=== PATIENT | female | born 1980 | race Caucasian/White ===

== ENCOUNTER 2017-09-02 17:31 | Emergency (ER) | payer OTHER ==
[~2017-09-02] VITALS: Ht 165.1 cm; Wt 105.3 kg
[~2017-09-02 17:31] MED LIST: ACETAMINOPHEN-1 EAC1 PO; ANTIVERT25 MG PO; CLARITIN10 MG PO; FLEXERIL PO; HYDROCODONE-AP1 EAC6 PO; IBUPROFEN 800800 M1 PO; IBUPROFEN 800800 MG PO; MUCINEX TA600 MG/TA2 PO; NORCO 5-325 TA1 EACH PO; OSELB75 PO; SERTRALINE HCL50 MG PO; SULFACETAMIDE 115 ML OP; TOBREX5 ML OP; VISTARIL 25 MG25 M1 PO; XANAX 0.5 MG0.5 MG PO
[2017-09-02 18:38] LABS: ABSOLUTE BASOPHILS 0.1 thou/uL (0.0-0.2); ABSOLUTE EOSINOPHILS 0.1 thou/uL (0.0-0.7); ABSOLUTE LYMPHOCYTES 2.2 thou/uL (0.8-5.3); ABSOLUTE MONOCYTES 0.8 thou/uL (0.0-1.2); ABSOLUTE NEUTROPHILS 11.4 thou/uL (1.6-8.1); BASOPHILS 0.9 %; HEMATOCRIT 39.7 % (37.0-47.0); HEMOGLOBIN 13.2 gm/dL (12.0-15.0); LYMPHOCYTES 14.9 %; MCH 29.4 pg (26.0-34.0); MCHC 33.1 g/dL (28.0-37.0); MCV 88.8 fL (80.0-100.0); MONOCYTES 5.5 %; MPV 8.4 fl. (7.2-11.1); NUCLEATED RBCS 0 /100WBC; PLATELET COUNT* 318 thou/uL (150-400); POLYS 77.7 %; RBC 4.47 mil/uL (4.20-5.00); RDW-CV 14.5 % (10.5-14.5); WBC 14.7 thou/uL (4.0-11.0)
[2017-09-02 18:54] LABS: URINE BILIRUBIN NEGATIVE (Negative); URINE BLOOD NEGATIVE (Negative); URINE CLARITY CLEAR; URINE COLOR YELLOW; URINE GLUCOSE-RANDOM NEGATIVE (Negative); URINE KETONES NEGATIVE (Negative); URINE LEUKOCYTES-REFLEX 1+ (Negative); URINE NITRITE-REFLEX NEGATIVE (Negative); URINE PROTEIN NEGATIVE (Negative); URINE UROBILINOGEN 0.2 E.U./dl (0.2-1.0)
[2017-09-02 18:55] LABS: ALBUMIN 3.7 g/dL (3.4-5.0); CALCIUM 8.6 mg/dL (8.5-10.1); CREATININE 0.9 mg/dL (0.6-1.3); POTASSIUM 3.3 mmol/L (3.5-5.1); TOTAL BILIRUBIN 0.8 mg/dL (<0.1-1.0)
[2017-09-02 19:02] LABS: CRYSTALS None Seen /LPF (None Seen); MUCUS 4-6 Moderate strn/LPF (None Seen); SQUAMOUS >10 Many /LPF (0-3)
[2017-09-02 19:03] LABS: CASTS None Seen /LPF (None Seen)
[2017-09-02 19:06] LABS: URINE RBC None Seen /HPF (0-2)
[2017-09-02 19:07] LABS: URINE WBC-REFLEX 0-5 Rare /HPF (0-5)
[2017-09-02] MEDS ORDERED: PROTONIX40 M1 PO (19:17)
[2017-09-02 19:26] VITALS: BP 129/70
--- NOTE | 2017-09-04 13:03 | EKG ---
[place] [address] ELECTROCARDIOGRAM REPORT Name: SHARIF ARMENTA Room: [facility]#: [id number] Admission: 09/02/17 Attend Phys: Discharge: 09/02/17 Date of : 76 Report #: [id number] THIS REPORT FOR: //name// [facility] ED Test Date: 2017-09-02 Test Time: 17:43:17 Pat Name: SHARIF ARMENTA Department: Room: Gender: F Video Journalist: FILIBERTO : 1980 Requested By: Tony Jovel Order Number: [id number] MD: Anam Nichols Measurements Intervals [place] Rate: 78 P: 47 RI: 116 QRS: 12 QRSD: 89 T: 34 QT: 379 QTc: 432 Interpretive Statements Sinus rhythm Borderline short RI interval Anteroseptal infarct, old Compared to ECG 09/07/2014 14:30:47 Sinus tachycardia no longer present Myocardial infarct finding still present Electronically Signed On 09-04-2017 13:03:09 TIRE RECAPPING MACHINE OPERATOR by Anam Nichols [email or web address] <ELECTRONICALLY SIGNED> By: Anam Nichols MD, [facility] 09/04/17 1303 1743 1743 Anam Nichols MD, [facility] /EPI
== END 2017-09-02 19:28 | disposition home or self-care (01) ==
LOC: M.ERS 17:31
PROVIDERS: Physician Assistant
DX: R10.13 Epigastric pain (principal); R11.2 Nausea with vomiting, unspecified; R19.7 Diarrhea, unspecified; F41.9 Anxiety disorder, unspecified; Z88.0 Allergy status to penicillin; Z88.8 Allergy status to other drugs, medicaments and biological substances

== ENCOUNTER 2018-10-17 08:56 | Emergency (ER) | payer OTHER ==
[~2018-10-17] VITALS: Ht 165.1 cm; Wt 99.8 kg
[~2018-10-17 08:56] MED LIST changes: +PROTONIX40 M1 PO
[2018-10-17 09:25] LABS: ABSOLUTE BASOPHILS 0.1 thou/uL (0.0-0.2); ABSOLUTE EOSINOPHILS 0.1 thou/uL (0.0-0.7); ABSOLUTE LYMPHOCYTES 0.8 thou/uL (0.8-5.3); ABSOLUTE NEUTROPHILS 6.2 thou/uL (1.6-8.1); BASOPHILS 0.8 %; EOSINOPHILS 0.8 %; HEMATOCRIT 40.5 % (37.0-47.0); HEMOGLOBIN 13.7 gm/dL (12.0-15.0); LYMPHOCYTES 10.1 %; MCHC 33.7 g/dL (28.0-37.0); MONOCYTES 12.8 %; MPV 8.6 fl. (7.2-11.1); NUCLEATED RBCS 0 /100WBC; PLATELET COUNT* 307 thou/uL (150-400); POLYS 75.5 %; RBC 4.41 mil/uL (4.20-5.00); RDW-CV 13.9 % (10.5-14.5); WBC 8.2 thou/uL (4.0-11.0)
[2018-10-17 09:32] LABS: ANION GAP 8 mmol/L (7-16); BUN 9 mg/dL (7-18); CALCIUM 10.2 mg/dL (8.5-10.1); CHLORIDE 102 mmol/L (98-107); CO2 26 mmol/L (21-32); CREATININE 0.8 mg/dL (0.6-1.3); GLUCOSE 96 mg/dL (70-99); POTASSIUM 3.6 mmol/L (3.5-5.1); SODIUM 136 mmol/L (136-145)
[2018-10-17 09:40] LABS: TROPONIN-I LEVEL <0.06 ng/mL (<0.06)
[2018-10-17 10:09] LABS: INFLUENZA A ANTIGEN None Detected (None Detect); INFLUENZA B ANTIGEN None Detected (None Detect)
[2018-10-17] MEDS ORDERED: TESSALON PERLE100 MG PO (10:35)
[2018-10-17 10:48] VITALS: BP 132/69
--- NOTE | 2018-10-17 14:12 | EKG ---
[place] [address] ELECTROCARDIOGRAM REPORT Name: SHARIF ARMENTA Room: [facility]#: [id number] Admission: 10/17/18 Attend Phys: Discharge: 10/17/18 Date of : 76 Report #: [id number] THIS REPORT FOR: //name// [facility] ED Test Date: 2018-10-17 Test Time: 09:21:54 Pat Name: SHARIF ARMENTA Department: Room: Gender: F Radiology Physician Assistant: Mallory FIGUEROA : 1980 Requested By: Jamie Mcintyre Order Number: [id number] MD: Jesus Wills Measurements Intervals [place] Rate: 107 P: 47 MA: 123 QRS: -1 QRSD: 84 T: 17 QT: 307 QTc: 410 Interpretive Statements Sinus tachycardia Anteroseptal infarct, old Compared to ECG 09/02/2017 17:43:17 Sinus rhythm no longer present Myocardial infarct finding still present Electronically Signed On 10-17-2018 14:12:36 IT BUSINESS SYSTEMS ANALYST by Jesus Wills [email or web address] <ELECTRONICALLY SIGNED> By: Jesus Wills MD, [facility] 10/17/18 1412 0 0 Jesus Wills MD, [facility] /EPI
== END 2018-10-17 10:49 | disposition home or self-care (01) ==
LOC: M.ERS 08:56
PROVIDERS: Emergency Medicine Emergency Medical Services
DX: J06.9 Acute upper respiratory infection, unspecified (principal); F41.9 Anxiety disorder, unspecified; Z88.0 Allergy status to penicillin; Z88.8 Allergy status to other drugs, medicaments and biological substances

== ENCOUNTER 2020-08-14 05:40 | Emergency (ER) | payer OTHER ==
[~2020-08-14] VITALS: Ht 165.1 cm; Wt 106.1 kg
[~2020-08-14 05:40] MED LIST changes: +TESSALON PERLE100 MG PO
[2020-08-14 06:27] LABS: URINE BILIRUBIN NEGATIVE (Negative); URINE BLOOD NEGATIVE (Negative); URINE CLARITY CLEAR; URINE COLOR YELLOW; URINE GLUCOSE-RANDOM NEGATIVE (Negative); URINE KETONES NEGATIVE (Negative); URINE LEUKOCYTES-REFLEX TRACE (Negative); URINE NITRITE-REFLEX NEGATIVE (Negative); URINE PROTEIN NEGATIVE (Negative); URINE UROBILINOGEN 0.2 E.U./dl (0.2-1.0)
[2020-08-14 06:38] LABS: AMORPHOUS PHOSPHATES Many /LPF (None Seen); CASTS None Seen /LPF (None Seen); MUCUS 4-6 Moderate strn/LPF (None Seen); SQUAMOUS 0-3 Few /LPF (0-3); URINE RBC 0-2 Rare /HPF (0-2); URINE WBC-REFLEX 0-5 Rare /HPF (0-5)
[2020-08-14 06:43] LABS: HEMATOCRIT 39.7 % (37.0-47.0); MCH 29.4 pg (26.0-34.0); MCHC 32.7 g/dL (28.0-37.0); MCV 90.1 fL (80.0-100.0); NUCLEATED RBCS 0 /100WBC; PLATELET COUNT* 364 thou/uL (150-400); RBC 4.41 mil/uL (4.20-5.00); RDW-CV 14.3 % (10.5-14.5); WBC 15.9 thou/uL (4.0-11.0)
[2020-08-14 07:29] LABS: CALCIUM 8.5 mg/dL (8.5-10.1); CREATININE 0.7 mg/dL (0.6-1.3); POTASSIUM 3.5 mmol/L (3.5-5.1)
[2020-08-14 07:34] LABS: ALBUMIN 3.7 g/dL (3.4-5.0)
[2020-08-14 08:26] LABS: ABSOLUTE LYMPHOCYTES 1.3 thou/uL (0.8-5.3); ABSOLUTE MONOCYTES 0.3 thou/uL (0.0-1.2); ABSOLUTE NEUTROPHILS 14.3 thou/uL (1.6-8.1); PLATELET ESTIMATE ADEQUATE
[2020-08-14] MEDS ORDERED: ZOFRAN ODT4 MG SUBLING (09:10)
[2020-08-14] MEDS ORDERED: NORCO 5-325 TA1 EAC2 PO (09:10)
[2020-08-14 09:32] VITALS: BP 129/59
== END 2020-08-14 09:33 | disposition home or self-care (01) ==
LOC: M.ERS 05:40
PROVIDERS: Personal Emergency Response Attendant
DX: K80.20 Calculus of gallbladder without cholecystitis without obstruction (principal); Z98.51 Tubal ligation status; Z88.6 Allergy status to analgesic agent; Z88.0 Allergy status to penicillin; Z88.8 Allergy status to other drugs, medicaments and biological substances

== ENCOUNTER 2020-11-03 20:27 | Inpatient (IN) | payer OTHER ==
[~2020-11-03] VITALS: Ht 165.1 cm; Wt 106.1 kg
--- NOTE | ~2020-11-03 | OP ---
[facility] [address] [place] [address] OPERATIVE REPORT Name: SHARIF ARMENTA Room: [address] IN M.R.#: [id number] Admission: 11/03/20 Attend Phys: Boris Patterson MD Discharge: Date of : 76 Report #: [id number] THIS REPORT FOR: cc: FAM - No family physician/PCP FAM - No family physician/PCP ~ Usama Michel MD PREOPERATIVE DIAGNOSIS: Gallstone pancreatitis. POSTOPERATIVE DIAGNOSIS: Gallstone pancreatitis. OPERATION: Laparoscopic cholecystectomy with intraoperative cholangiogram. SURGEON: Usama Michel MD ANESTHESIA: General. ESTIMATED BLOOD LOSS: Minimal. SPECIMEN: Gallbladder. DESCRIPTION OF PROCEDURE: After informed consent was obtained, the patient was brought to the operating room and placed supine. SCDs were placed and working, preoperative antibiotics were administered, general anesthesia was induced. The abdomen was prepped and draped in the usual sterile fashion. A 10 mm incision was made above the umbilicus. Fascia was incised and a trocar was placed. Pneumoperitoneum was established. Three right upper quadrant 5 mm ports were placed. Gallbladder was grasped at the fundus and retracted cephalad. Infundibulum was grasped and retracted laterally. I dissected out the cystic duct and cystic artery. Cystic duct was clipped. A ductotomy was made. Cholangiogram catheter was then inserted. Cholangiogram was performed. This demonstrated filling of the cystic duct, common bile duct, common hepatic duct, bifurcation of the hepatics, a smooth flow into the duodenum. There were no filling defects. This was normal. The gallbladder was then clipped and ligated leaving 2 clips on the remaining duct and one on the remaining artery. Gallbladder was then taken off the liver bed with electrocautery. It was placed into an Endopouch and removed. The fascia was then closed with a movfry-ff-tzynl 0 Vicryl. Skin was closed with 4-0 Monocryl. Incisions were dressed with Steri-Strips. COMPLICATIONS: None. DISPOSITION: The patient was taken to recovery in satisfactory condition. By: 0913 [id number] Michel MD /yung
[~2020-11-03 20:27] MED LIST changes: +NORCO 5-325 TA1 EAC2 PO; +ZOFRAN ODT4 MG SUBLING
[2020-11-03 20:34] VITALS: BP 133/107
[2020-11-03 20:45] LABS: URINE BILIRUBIN NEGATIVE (Negative); URINE BLOOD TRACE (Negative); URINE CLARITY CLEAR; URINE COLOR YELLOW; URINE GLUCOSE-RANDOM NEGATIVE (Negative); URINE KETONES NEGATIVE (Negative); URINE LEUKOCYTES-REFLEX 1+ (Negative); URINE NITRITE-REFLEX NEGATIVE (Negative); URINE PROTEIN NEGATIVE (Negative); URINE SPECIFIC GRAVITY 1.025 (1.005-1.030); URINE UROBILINOGEN 0.2 E.U./dl (0.2-1.0)
[2020-11-03 20:57] LABS: MUCUS None Seen strn/LPF (None Seen); SQUAMOUS >10 Many /LPF (0-3)
[2020-11-03 20:58] LABS: BACTERIA-REFLEX 1-9 Few /HPF (None Seen); CASTS None Seen /LPF (None Seen); CRYSTALS None Seen /LPF (None Seen); URINE RBC 0-2 Rare /HPF (0-2); URINE WBC-REFLEX 0-5 Rare /HPF (0-5)
[2020-11-03 21:09] LABS: ABSOLUTE BASOPHILS 0.1 thou/uL (0.0-0.2); ABSOLUTE EOSINOPHILS 0.1 thou/uL (0.0-0.7); ABSOLUTE LYMPHOCYTES 3.4 thou/uL (0.8-5.3); BASOPHILS 0.5 %; EOSINOPHILS 0.9 %; HEMATOCRIT 39.6 % (37.0-47.0); HEMOGLOBIN 13.1 gm/dL (12.0-15.0); LYMPHOCYTES 21.6 %; MCH 29.8 pg (26.0-34.0); MCV 90.4 fL (80.0-100.0); MONOCYTES 6.6 %; MPV 8.1 fl. (7.2-11.1); NUCLEATED RBCS 0 /100WBC; PLATELET COUNT* 384 thou/uL (150-400); POLYS 70.4 %; RBC 4.38 mil/uL (4.20-5.00); RDW-CV 13.8 % (10.5-14.5); WBC 15.6 thou/uL (4.0-11.0)
[2020-11-03 21:14] LABS: ANION GAP 10 mmol/L (7-16); BUN 14 mg/dL (7-18); CALCIUM 9.6 mg/dL (8.5-10.1); CHLORIDE 99 mmol/L (98-107); CO2 30 mmol/L (21-32); CREATININE 0.8 mg/dL (0.6-1.3); GLUCOSE 111 mg/dL (70-99); POTASSIUM 3.1 mmol/L (3.5-5.1); SODIUM 139 mmol/L (136-145)
[2020-11-03 21:19] LABS: ALBUMIN 4.1 g/dL (3.4-5.0); ALKALINE PHOSPHATASE 231 U/L (46-116); SGOT 124 U/L (15-37); SGPT 147 U/L (30-65)
[2020-11-03 21:27] LABS: LIPASE > 30000 U/L (73-393)
[2020-11-03 23:30] VITALS: BP 147/77
[2020-11-03 23:50] VITALS: BP 119/69
[2020-11-04 08:15] VITALS: BP 139/85
[2020-11-04 09:31] LABS: HEMATOCRIT 36.6 % (37.0-47.0); HEMOGLOBIN 12.1 gm/dL (12.0-15.0); MCV 90.9 fL (80.0-100.0); MPV 7.8 fl. (7.2-11.1); NUCLEATED RBCS 0 /100WBC; PLATELET COUNT* 359 thou/uL (150-400); RBC 4.03 mil/uL (4.20-5.00); WBC 20.5 thou/uL (4.0-11.0)
[2020-11-04 09:42] LABS: CALCIUM 8.6 mg/dL (8.5-10.1); CREATININE 0.8 mg/dL (0.6-1.3); POTASSIUM 3.1 mmol/L (3.5-5.1); TOTAL BILIRUBIN 1.1 mg/dL (<0.1-1.0); TOTAL PROTEIN 7.9 g/dL (6.4-8.2)
[2020-11-04 10:05] LABS: ABSOLUTE LYMPHOCYTES 1.2 thou/uL (0.8-5.3); ABSOLUTE MONOCYTES 1.6 thou/uL (0.0-1.2); ABSOLUTE NEUTROPHILS 17.6 thou/uL (1.6-8.1)
[2020-11-04 10:06] LABS: LARGE PLATELETS OCCASIONAL; PLATELET ESTIMATE ADEQUATE
[2020-11-04 10:13] LABS: APTT 24.2 Seconds (25.0-31.3); PROTIME 10.6 Seconds (9.20-11.50)
--- NOTE | 2020-11-04 11:07 | EKG ---
[place] [address] ELECTROCARDIOGRAM REPORT Name: CARLOSSHARIF LE FORTINO Room: [address] ADM IN .R.#: [id number] Admission: 11/03/20 Attend Phys: Boris Patterson, Discharge: Date of : 76 Date of Service: 11/03/202209 Report #: [id number] THIS REPORT FOR: //name// [facility] ED Test Date: 2020-11-03 Test Time: 22:10:41 Pat Name: SHARIF ARMETNA Department: Room: [facility] Gender: F Transportation Modeler: MIKE MORELOS: 1980 Requested By: Alia Fernandez Order Number: [id number] MD: Jesus Wills Measurements Intervals [place] Rate: 74 P: 38 DE: 124 QRS: 0 QRSD: 96 T: 20 QT: 412 QTc: 457 Interpretive Statements Sinus rhythm Anteroseptal infarct, old Compared to ECG 10/17/2018 09:21:54 Sinus tachycardia no longer present Myocardial infarct finding still present Electronically Signed On 11-04-2020 11:07:27 CONTINUING EDUCATION DEAN by Jesus Wills [email or web address] <ELECTRONICALLY SIGNED> By: Jesus Wills MD, FACC 11/04/20 1107 09 09 Jesus Wills MD, FAC /EPI
[2020-11-04 16:00] VITALS: BP 123/63
[2020-11-04 20:00] VITALS: BP 116/55
[2020-11-05 04:00] VITALS: BP 121/64
[2020-11-05 05:46] LABS: HEMATOCRIT 32.4 % (37.0-47.0); HEMOGLOBIN 10.6 gm/dL (12.0-15.0); MCH 30.3 pg (26.0-34.0); MCHC 32.9 g/dL (28.0-37.0); MPV 7.7 fl. (7.2-11.1); RBC 3.52 mil/uL (4.20-5.00); RDW-CV 13.9 % (10.5-14.5); WBC 17.2 thou/uL (4.0-11.0)
[2020-11-05 06:00] LABS: ALBUMIN 3.2 g/dL (3.4-5.0); CALCIUM 8.3 mg/dL (8.5-10.1); CREATININE 0.6 mg/dL (0.6-1.3); MAGNESIUM 1.9 mg/dL (1.8-2.4); TOTAL BILIRUBIN 1.1 mg/dL (<0.1-1.0); TOTAL PROTEIN 6.7 g/dL (6.4-8.2)
[2020-11-05 06:11] LABS: POTASSIUM 4.2 mmol/L (3.5-5.1)
[2020-11-05 08:20] VITALS: BP 122/50
[2020-11-05 19:34] VITALS: BP 143/71
[2020-11-06 05:00] LABS: ALBUMIN 3.1 g/dL (3.4-5.0); CALCIUM 8.2 mg/dL (8.5-10.1); CREATININE 0.6 mg/dL (0.6-1.3); POTASSIUM 3.7 mmol/L (3.5-5.1); TOTAL BILIRUBIN 0.8 mg/dL (<0.1-1.0); TOTAL PROTEIN 6.6 g/dL (6.4-8.2)
[2020-11-06 05:11] LABS: HEMATOCRIT 31.2 % (37.0-47.0); HEMOGLOBIN 10.2 gm/dL (12.0-15.0); MCH 30.3 pg (26.0-34.0); MCHC 32.8 g/dL (28.0-37.0); MCV 92.2 fL (80.0-100.0); RBC 3.38 mil/uL (4.20-5.00); WBC 15.1 thou/uL (4.0-11.0)
[2020-11-06 08:00] VITALS: BP 139/71
[2020-11-06 08:15] VITALS: BP 139/71
[2020-11-06 15:34] VITALS: BP 150/67
[2020-11-06 20:48] VITALS: BP 144/77
[2020-11-07 04:30] LABS: HEMOGLOBIN 10.2 gm/dL (12.0-15.0); MCH 30.5 pg (26.0-34.0); MCHC 32.9 g/dL (28.0-37.0); MCV 92.5 fL (80.0-100.0); RBC 3.36 mil/uL (4.20-5.00); RDW-CV 13.8 % (10.5-14.5); WBC 13.6 thou/uL (4.0-11.0)
[2020-11-07 04:51] LABS: CALCIUM 8.7 mg/dL (8.5-10.1); CREATININE 0.6 mg/dL (0.6-1.3); POTASSIUM 3.3 mmol/L (3.5-5.1); TOTAL BILIRUBIN 0.6 mg/dL (<0.1-1.0)
[2020-11-07 08:30] VITALS: BP 143/77
[2020-11-07 20:00] VITALS: BP 135/69
[2020-11-08 04:33] LABS: HEMATOCRIT 30.3 % (37.0-47.0); HEMOGLOBIN 10.2 gm/dL (12.0-15.0); MCH 30.5 pg (26.0-34.0); MCHC 33.6 g/dL (28.0-37.0); MCV 90.6 fL (80.0-100.0); MPV 7.8 fl. (7.2-11.1); RBC 3.34 mil/uL (4.20-5.00); RDW-CV 13.8 % (10.5-14.5); WBC 10.5 thou/uL (4.0-11.0)
[2020-11-08 04:50] LABS: CALCIUM 9.3 mg/dL (8.5-10.1); CREATININE 0.7 mg/dL (0.6-1.3); POTASSIUM 3.7 mmol/L (3.5-5.1)
[2020-11-08 06:20] VITALS: BP 135/69
[2020-11-08 10:15] VITALS: BP 121/57
[2020-11-08 16:22] VITALS: BP 129/51
[2020-11-08 20:00] VITALS: BP 134/63
[2020-11-09] VITALS (8 sets, daily range): BP systolic 130–147; BP diastolic 62–76
[2020-11-09] MEDS ORDERED: HYDROCODON-ACE1 EAC7 PO (08:53)
--- NOTE | 2020-11-10 13:08 | PATH ---
[address] [address] PATHOLOGY RPT PROCEDURE Name: SHARIF ARMENTA Room: [address] IN M.R.#: [id number] Admission: 11/03/20 Date of : 76 Discharge: 11/09/20 Report #: [id number] Path Case #: [id number] [facility] Accession Number: [id number] . 01 Material submitted: . gallbladder - GALLBLADDER AND CONTENTS . 01 Clinical history: . GALLSTONE PANCREATITIS . 02 Diagnosis: Gallbladder and contents: - Chronic cholecystitis and cholelithiasis. (SONI:emmanuelle; 11/10/2020) S 11/10/2020 1142 Local . 02 Electronically signed: . Catarino Sosa MD, Pathologist NPI- [id number] . 01 Gross description: . Fixative: Formalin Labeled: Gallbladder and contents Specimen received: Intact gallbladder Dimensions: 6.3 x 2.9 x 2.9 cm Serosa: Blue-avelar Lymph node: Not identified Mucosa: Velvety, bile-stained Average wall thickness: 0.1 Calculi: Present displaying a black and spiculated appearance Abnormalities: None identified . Director Of Philanthropy body, fundus, and the cystic duct margin in A1. (CAA; 11/09/2020) QA/QA 11/09/2020 1521 Local . 02 Pathologist provided ICD-10: K80.10 . 02 CPT . 915760 Specimen Comment: A courtesy copy of this report has been sent to [phone] Specimen Comment: Report sent to / Performed at: [address] [id number] MD Juaquin Muhammad MD Phone: [phone] Performed at: [address] [address] PATHOLOGY RPT PROCEDURE Name: SHARIF ARMENTA Room: [address] IN [facility]#: [id number] Admission: 11/03/20 Date of : 76 Discharge: 11/09/20 Report #: [id number] Path Case #: [id number] [address] [id number] MD Catarino Sosa MD Phone: [phone]
== END 2020-11-09 11:05 | disposition home or self-care (01) | DRG 853 ==
LOC: M.ERS 20:27 → M.TBA-ER 21:52 → M.ORTHSURG 21:52 → M.3W 21:52 → M.ORTHSURG 11-07 16:39
PROVIDERS: Emergency Medicine; Family Medicine; Internal Medicine; ADMIT Internal Medicine; ATTEND Internal Medicine
DX: A41.9 Sepsis, unspecified organism (principal); K85.10 Biliary acute pancreatitis without necrosis or infection; F41.9 Anxiety disorder, unspecified; E87.6 Hypokalemia; E86.0 Dehydration; Z20.822 Contact with and (suspected) exposure to COVID-19; Z79.899 Other long term (current) drug therapy; Z88.0 Allergy status to penicillin; Z88.8 Allergy status to other drugs, medicaments and biological substances